=== PATIENT | male | born 1995 | race Caucasian/White ===

== ENCOUNTER 2019-04-03 14:09 | Emergency (ER) | payer SELFPAY ==
--- NOTE | 2019-04-03 14:32 | RAD ---
XR Knee Rt 4 View STANDARD: 04/03/2019 2:16 PM CLINICAL INDICATION: Knee pain COMPARISON: None. FINDINGS: Fracture:No fracture. Arthropathy:None of significance. Incidental findings:None of significance. Mild joint capsular distention. IMPRESSION: 1. No acute osseous abnormality. 2. Mild joint capsular distention.
[2019-04-03] MEDS ORDERED: Ketorolac Tromethamine 30 MG/ML VIAL ONE (14:52)
== END 2019-04-03 15:21 | disposition home or self-care (01) ==
LOC: ERS 14:09
DX: S83.91XA Sprain of unspecified site of right knee, initial encounter (principal); F41.9 Anxiety disorder, unspecified; F32.9 Major depressive disorder, single episode, unspecified; F43.10 Post-traumatic stress disorder, unspecified; F17.210 Nicotine dependence, cigarettes, uncomplicated; X50.9XXA Other and unspecified overexertion or strenuous movements or postures, initial encounter
CPT/HCPCS: 96372; J1885